=== PATIENT | male | born 1985 | race Caucasian/White ===

== ENCOUNTER 2023-01-18 07:21 | Outpatient (OUT) | payer SELFPAY ==
[2023-01-18 07:46] LABS: Basophils Absolute Auto 0.1 10^3/uL (0.0-0.1); Basophils Percent Auto 1.2 % (0.2-2.0); Eosinophils Absolute Auto 0.2 10^3/uL (0.0-0.7); Hematocrit 42.4 % (42.0-54.0); Hemoglobin 14.4 g/dL (14.0-18.0); Immature Granulocytes Abs Auto 0.01 10^3/uL (0.00-0.03); Immature Granulocytes Pct Auto 0.1 % (0.0-0.5); Lymphocytes Absolute Auto 2.2 10^3/uL (1.2-3.8); Lymphocytes Percent Auto 30.6 % (20.5-60.0); Mean Corpuscular Hemoglobin 31.7 pg (25.9-34.0); Mean Corpuscular Volume 93.4 fL (80.0-94.0); Mean Platelet Volume 10.6 fL (9.5-13.5); Monocytes Absolute Auto 0.6 10^3/uL (0.3-0.8); Monocytes Percent Auto 7.7 % (1.7-12.0); Neutrophils Absolute Auto 4.2 10^3/uL (1.4-6.5); Neutrophils Percent Auto 57.4 % (43.0-75.0); Platelet Count 355 10^3/uL (150-450); Red Blood Count 4.54 10^6/uL (4.70-6.10); Red Cell Distribution Width 12.3 % (11.0-15.0); White Blood Count 7.3 10^3/uL (4.0-11.0)
[2023-01-18 07:59] LABS: Estimated Average Glucose 108 mg/dL; Glycohemoglobin A1C 5.4 % (4.5-6.2)
[2023-01-18 08:30] LABS: Alanine Aminotransferase 54 U/L (16-63); Albumin Globulin Ratio 0.9; Albumin Level 3.7 g/dL (3.4-5.0); Alkaline Phosphatase 95 U/L (46-116); Anion Gap 5.5; Aspartate Amino Transferase 24 U/L (15-37); BUN Creatinine Ratio 13.6; Bilirubin Direct 0.1 mg/dL (0.0-0.2); Bilirubin Total 0.4 mg/dL (0.2-1.0); Calcium 9.3 mg/dL (8.5-10.1); Carbon Dioxide 31.8 mmol/L (21.0-32.0); Chloride 105 mmol/L (98-107); Chol HDL Ratio 4.1; Cholesterol 164 mg/dL (<=200); Estimated GFR (African America >60 (>=60); Estimated GFR (Non-African Ame >60 (>=60); Globulin 4.2 g/dL; Glucose 108 mg/dL (74-106); HDL Cholesterol 40 mg/dL (40-60); Potassium 4.3 mmol/L (3.5-5.1); Sodium 138 mmol/L (136-145); Thyroid Stimulating Hormone 1.455 uIU/mL (0.358-3.740); Total Protein 7.9 g/dL (6.4-8.2); Triglycerides 100 mg/dL (<=150)
== END 2023-01-18 07:22 | disposition home or self-care (01) ==
LOC: LAB 07:24
PROVIDERS: PCP Family Medicine; Visit Provider Family Medicine
DX: Z00.00 Encounter for general adult medical examination without abnormal findings (principal); E55.9 Vitamin D deficiency, unspecified
CPT/HCPCS: 36415; 80048; 80061; 80076; 82306; 83036; 84443; 85025

== ENCOUNTER 2023-03-11 06:14 | Emergency (ER) | payer SELFPAY ==
[2023-03-11 06:17] VITALS: BP 151/113; PULSE 85; RESP 16; TEMP 36.7; O2SAT 100; BMI 31.7
--- NOTE | 2023-03-11 06:27 | XR_ITS ---
The [address] [address] Patient Name: JOHN VELIZ MRN: [id number] date: 1985 Sex: M Assigned Patient Location: ER Current Patient Location: Accession/Order Number: [id number] Exam Date: 03/11/2023 06:30 Report Date: 03/11/2023 10:18 At the request of: KIRAN OSUNA Procedure: XR knee RT 3V EXAM: XR knee RT 3V 03/11/2023. HISTORY: swelling COMPARISON: None. FINDINGS: Frontal, oblique, and lateral views for 3 views obtained. XR/XR knee RT 3V IMPRESSION: 1. The osseous alignment is intact. No acute fracture or dislocation. 2. Small joint effusion suggested on the lateral view. No pathologic calcification or radiopaque foreign body. Electronically authenticated by: JANINE HARE Date: 03/11/2023 10:18
[2023-03-11] MEDS: KETOROLAC TROMETHAMINE 30 MG/ML VIAL IVP (06:42)
[2023-03-11 06:50] LABS: Basophils Absolute Auto 0.1 10^3/uL (0.0-0.1); Basophils Percent Auto 0.5 % (0.2-2.0); Eosinophils Absolute Auto 0.1 10^3/uL (0.0-0.7); Hematocrit 45.5 % (42.0-54.0); Hemoglobin 15.4 g/dL (14.0-18.0); Immature Granulocytes Abs Auto 0.06 10^3/uL (0.00-0.03); Immature Granulocytes Pct Auto 0.4 % (0.0-0.5); Lymphocytes Absolute Auto 1.7 10^3/uL (1.2-3.8); Lymphocytes Percent Auto 11.4 % (20.5-60.0); Mean Corpuscular HGB Conc 33.8 g/dL (29.9-35.2); Mean Corpuscular Hemoglobin 31.8 pg (25.9-34.0); Mean Platelet Volume 10.7 fL (9.5-13.5); Monocytes Absolute Auto 0.9 10^3/uL (0.3-0.8); Monocytes Percent Auto 6.4 % (1.7-12.0); Neutrophils Absolute Auto 11.7 10^3/uL (1.4-6.5); Neutrophils Percent Auto 80.3 % (43.0-75.0); Platelet Count 368 10^3/uL (150-450); Red Blood Count 4.84 10^6/uL (4.70-6.10); Red Cell Distribution Width 12.1 % (11.0-15.0); White Blood Count 14.6 10^3/uL (4.0-11.0)
[2023-03-11 07:02] LABS: Erythrocyte Sedimentation Rate 24 mm/hr (<=15)
[2023-03-11 07:07] LABS: Anion Gap 12.8; BUN Creatinine Ratio 15.4; C Reactive Protein 1.7 mg/dL (<=1.0); Calcium 9.2 mg/dL (8.5-10.1); Carbon Dioxide 28.9 mmol/L (21.0-32.0); Chloride 101 mmol/L (98-107); Estimated GFR (African America >60 (>=60); Estimated GFR (Non-African Ame >60 (>=60); Glucose 124 mg/dL (74-106); Potassium 3.7 mmol/L (3.5-5.1); Sodium 139 mmol/L (136-145); Uric Acid 7.5 mg/dL (3.5-7.2)
--- NOTE | 2023-03-11 07:12 | ED.GENADUL1 ---
HPI - General Adult General Chief complaint: Extremity Injury, Lower Stated complaint: LOWER EXTREMITY PAIN RIGHT KNEE Time Seen by Provider: 03/11/23 06:31 Source: patient Mode of arrival: Wheelchair Limitations: no limitations History of Present Illness HPI narrative: 37-year-old male presents for right knee swelling and pain. It started two days ago. There was no injury. He's been having issues like this two or three times a year for the past two or three years. It swells up and then it goes away and he's never sought medical care until today. He hasn't had a fever. There was no injury or unusual activity. He is employed as a electric spot welder. No other joint hurts. Related Data Home Medications Medication Instructions Recorded Confirmed carvedilol 3.125 mg tablet 3.125 mg PO BID 03/11/23 03/11/23 hydrochlorothiazide 25 mg tablet 25 mg PO DAILY 03/11/23 03/11/23 Previous Rx's Medication Instructions Recorded hydrocodone 5 mg-acetaminophen 325 1 tab PO Q6H PRN pain #20 tabs 03/11/23 mg tablet indomethacin 25 mg capsule See Rx Instructions .Route 03/11/23 .COMPLEX #40 caps Allergies Allergy/AdvReac Type Severity Reaction Status Date / Time No Known Drug Allergies Allergy Verified 03/11/23 06:21 Review of Systems ROS Narrative A ten point review of systems is negative except as noted above. PFSH PFSH Social History Smoking status: Current every day smoker Exam Narrative Exam Narrative: Nurses note and vital signs reviewed and patient is not hypoxic. General: The patient appears well and in no apparent distress. Patient is resting comfortably on cart. Skin: Warm, dry, no pallor noted. There is no rash noted. Head: Normocephalic, atraumatic Eye: Normal conjunctiva, no drainage Ears, Nose, Mouth, and Throat: oral mucosa is moist. Nares patent. Cardiovascular: Regular Rate and Rhythm Respiratory: Patient is in no distress, no accessory muscle use, lungs are clear to auscultation, no wheezing, rales or rhonchi Back: non-tender GI: soft and nontender. Musculoskeletal: right knee is swollen compared to contralateral. It's not warm to touch or erythematous. No bruise or rash. Nontender. Neurological: A&O, normal speech Psychiatric: Cooperative Constitutional Vital Signs, click to edit/add: Last Vital Signs Temp 98.1 F 03/11/23 06:17 Pulse 65 03/11/23 07:25 Resp 16 03/11/23 07:25 BP 140/98 H 03/11/23 07:25 Pulse Ox 99 03/11/23 07:25 O2 Del Method Room Air 03/11/23 06:17 Course Vital Signs Vital signs: Vital Signs Temperature 98.1 F 03/11/23 06:17 Pulse Rate 85 03/11/23 06:17 Respiratory Rate 16 03/11/23 06:17 Blood Pressure 151/113 H 03/11/23 06:17 Pulse Oximetry 100 03/11/23 06:17 Oxygen Delivery Method Room Air 03/11/23 06:17 Temperature 98.1 F 03/11/23 06:17 Pulse Rate 65 03/11/23 07:25 Respiratory Rate 16 03/11/23 07:25 Blood Pressure 140/98 H 03/11/23 07:25 Pulse Oximetry 99 03/11/23 07:25 Oxygen Delivery Method Room Air 03/11/23 06:17 Medical Decision Making MDM Narrative Medical decision making narrative: x-ray shows minimal effusion. Uric acid level is mildly elevated and though not diagnostic of gout suggests out. His clinical presentation is consistent with gout. He's had a few attacks every year or the past several years. Remy wrap was applied and application checked by me and found to be appropriate, he is neurovascularly intact. He is also placed on crutches and given a work note. He'll follow up promptly with orthopedics. I do not suspect a knee joint infection from a clinical standpoint. Treatment diagnosis and follow-up were discussed with the patient and his . Differential Diagnosis Differential Diagnosis: gut, arthritis, knee sprain, joint infection Lab Data Lab results reviewed: Yes I reviewed the patient's lab results Labs: Lab Results 03/11/23 Range/Units 06:42 WBC 14.6 H (4.0-11.0) 10^3/uL RBC 4.84 (4.70-6.10) 10^6/uL Hgb 15.4 (14.0-18.0) g/dL Hct 45.5 (42.0-54.0) % MCV 94.0 (80.0-94.0) fL MCH 31.8 (25.9-34.0) pg MCHC 33.8 (29.9-35.2) g/dL RDW 12.1 (11.0-15.0) % Plt Count 368 (150-450) 10^3/uL MPV 10.7 (9.5-13.5) fL Neut % (Auto) 80.3 H (43.0-75.0) % Lymph % (Auto) 11.4 L (20.5-60.0) % [place] % (Auto) 6.4 (1.7-12.0) % Eos % (Auto) 1.0 (0.9-7.0) % Baso % (Auto) 0.5 (0.2-2.0) % Neut # (Auto) 11.7 H (1.4-6.5) 10^3/uL Lymph # (Auto) 1.7 (1.2-3.8) 10^3/uL [place] # (Auto) 0.9 H (0.3-0.8) 10^3/uL Eos # (Auto) 0.1 (0.0-0.7) 10^3/uL Baso # (Auto) 0.1 (0.0-0.1) 10^3/uL Abs Immat Gran (auto) 0.06 H (0.00-0.03) 10^3/uL Imm/Tot Granulo (auto) 0.4 (0.0-0.5) % ESR 24 H (<=15) mm/hr Sodium 139 (136-145) mmol/L Potassium 3.7 (3.5-5.1) mmol/L Chloride 101 (98-107) mmol/L Carbon Dioxide 28.9 (21.0-32.0) mmol/L Anion Gap 12.8 BUN 14.0 (7.0-18.0) mg/dL Creatinine 0.91 (0.70-1.30) mg/dL Est GFR ( Amer) >60 (>=60) Est GFR (Non-Af Amer) >60 (>=60) BUN/Creatinine Ratio 15.4 Glucose 124 H (74-106) mg/dL Uric Acid 7.5 H (3.5-7.2) mg/dL Calcium 9.2 (8.5-10.1) mg/dL C-Reactive Protein 1.7 H (<=1.0) mg/dL Imaging Data right knee x-ray: Radiologist's impression: small effusion Discharge Plan Discharge Chief Complaint: Extremity Injury, Lower Clinical Impression: Gout Patient Disposition: Home, Self-Care Time of Disposition Decision: 07:48 Condition: Good Mode of Transportation: Private Vehicle Prescriptions / Home Meds: New hydrocodone-acetaminophen 5-325 mg tablet 1 tab PO Q6H PRN (Reason: pain) Qty: 20 0RF indomethacin 25 mg capsule See Rx Instructions .ROUTE .COMPLEX Qty: 40 0RF Rx Instructions: administer with food or milk two by mouth every eight hours for three days, then one by mouth every 8 hours for three days, then one by mouth every 8 hours when necessary No Action carvedilol 3.125 mg tablet 3.125 mg PO BID hydrochlorothiazide 25 mg tablet 25 mg PO DAILY Instructions: Low Purine Diet (ED), Gout (ED) Stand Alone Forms: Portal Instructions Referrals: James Noguera MD [Primary Care Provider] - 1 week
[2023-03-11 07:25] VITALS: BP 140/98; PULSE 65; RESP 16; O2SAT 99
== END 2023-03-11 08:02 | disposition home or self-care (01) ==
PROVIDERS: Internal Medicine; Emergency Provider Emergency Medicine; PCP Family Medicine
DX: M10.9 Gout, unspecified (principal); Z79.899 Other long term (current) drug therapy; F17.210 Nicotine dependence, cigarettes, uncomplicated
CPT/HCPCS: 36415; 73562; 80048; 84550; 85025; 85652; 86140; 96374; 99285